=== PATIENT | female | born 1975 | race Caucasian/White ===

== ENCOUNTER 2018-04-20 18:51 | Emergency (ER) | payer OTHER ==
[2018-04-20 19:05] VITALS: BMI 16.7
[2018-04-20] MEDS ORDERED: ASPIRIN 81 MG CHEWABLE TABLETS PO ONE (20:17)
--- NOTE | 2018-04-20 20:17 | PDOC ---
History of Present Illness - General Chief Complaint: Chest Pain Stated Complaint: CHEST PALPITATIONS Time Seen by Provider: 04/20/18 19:34 History Source: Patient Exam Limitations: Language Barrier - History of Present Illness Initial Comments: 04/20/18 20:14 Pt is a 42yo f with no significant PMH presenting to ED with chest pain that started this morning around 9am. Pt said she was walking when she felt the pain and it has been constant since. Pain is stabbing in the left chest, does not radiate, associated with palpitations and lightheadedness. She tried herbal remedies but it did not help. She denies shortness of breath, cough, abdominal pain, n/v/d, fevers, headache, neck pain, urinary symptoms. LMP 3 weeks ago. Denies history of MO in the family. She smokes 10 cigarettes/day. PMD: none PMH: none PSH: appendectomy Meds: none Social: smokes 10 cigarettes/day Allergies: denies Past History - Past Medical History Allergies/Adverse Reactions: Allergies Allergy/AdvReac Type Severity Reaction Status Date / Time No Known Allergies Allergy Verified 04/20/18 21:11 Home Medications: Ambulatory Orders NK [No Known Home Medication] 04/20/18 - Immunization History Immunization Up to Date: Yes - Suicide/Smoking/Psychosocial Hx Smoking History: Current every day smoker Have you smoked in the past 12 months: Yes Number of Cigarettes Smoked Daily: 10 Information on smoking cessation initiated: No 'Breaking Loose' booklet given: 01/04/15 Hx Alcohol Use: No Drug/Substance Use Hx: No Substance Use Type: None *Physical Exam - Vital Signs Last Vital Signs Temp Pulse Resp BP Pulse Ox 98.1 F 61 20 114/72 99 04/20/18 19:15 04/20/18 19:15 04/20/18 19:15 04/20/18 19:15 04/20/18 19:15 ED Treatment Course - LABORATORY CBC & Chemistry Diagram: 04/20/18 21:50 04/20/18 21:50 Medical Decision Making - Medical Decision Making 04/20/18 21:08 Pt is a 42yo f with no significant PMH presenting to ED with chest pain that started this morning around 9am. PERC negative 04/20/18 21:16 labs wnl. waiting for ekg and cxr still has cp. ibuprofen and Tylenol given. EKG: sinus keya. T inversion in lead 3, aVF, V1, V3. T wave flattening in Lead 2 and V2. Similar to prior. D-dimer negative. Pt can be dc home. Given appointment with primary care. *DC/Admit/Observation/Transfer Diagnosis at time of Disposition: Chest pain Qualifiers: Chest pain type: unspecified Qualified Code(s): R07.9 - Chest pain, unspecified - Discharge Dispostion Disposition: HOME Condition at time of disposition: Good Decision to Admit order: No - Referrals - Patient Instructions Printed Discharge Instructions: DI for Chest Pain, Smoking Cessation Additional Instructions: You were seen here today for chest pain. All of your tests were normal. I highly recommend you see a doctor in the next week or so. You have an appointment scheduled. Please go to the appointment. I also recommend you stop smoking! It is hard, but it is important for your health. You can take over the counter medicines for your pain, like Tylenol and ibuprofen as directed. Come back to the emergency room if: pain gets worse, you have shortness of breath, you develop fevers, or if any new concerning symptom develops. Thank you - Post Discharge Activity
[2018-04-20] MEDS ORDERED: ASPIRIN 325 MG TABLET ONE (20:31)
[2018-04-20 20:38] LABS: BASO % 0.6 % (0-2.0); EOS % 1.6 % (0-4.5); HEMATOCRIT 28.8 % (32.4-45.2); LYMPH % 27.5 % (8-40); MCH 20.1 pg (25.7-33.7); MCHC 31.1 g/dl (32.0-36.0); MEAN CELL VOLUME 64.8 fl (80-96); MEAN PLT VOLUME 7.7 fl (7.5-11.1); MONO % 8.5 % (3.8-10.2); NEUT % 61.8 % (42.8-82.8); PLATELET COUNT 348 K/MM3 (134-434); RBC 4.44 M/mm3 (3.60-5.2); RDW 18.8 % (11.6-15.6); WHITE BLOOD COUNT 7.2 K/mm3 (4.0-10.0)
[2018-04-20 21:00] LABS: ALBUMIN 3.7 g/dl (3.4-5.0); ALK PHOS 43 U/L (45-117); ANION GAP 6 MMOL/L (8-16); BILIRUBIN,TOTAL 0.2 mg/dL (0.2-1); BLOOD UREA NITROGEN 10 mg/dL (7-18); CALCIUM 8.1 mg/dL (8.5-10.1); CHLORIDE 109 mmol/L (98-107); CO2 26 mmol/L (21-32); CREATININE 0.6 mg/dL (0.55-1.3); GLUCOSE,RANDOM 86 mg/dL (74-106); SGOT/AST 14 U/L (15-37); SGPT/ALT 15 U/L (13-61); SODIUM 141 mmol/L (136-145)
--- NOTE | 2018-04-20 21:04 | PDOC ---
Attending Attestation - HPI HPI: 04/20/18 23:40 The patient is a 42 year old female with no significant past medical history who presents to the ED with complaints of left sided, non-radiating chest pain with associated palpitations and lightheadedness while walking down the street today. Patient also admits to having some right calf pain that travels up her leg as well. Denies any lower extremity swelling. She denies any associated shortness of breath, cough, diaphoresis or syncope. Denies any cardiac history but reports smoking 10 cigarettes/day. - Physicial Exam PE: 04/20/18 23:40 NAD, well appearing, MMM, nl conjunctiva, anicteric; neck supple. lungs clear, RRR, abdomen soft nontender. KIRK x4, no focal neuro deficits. No peripheral edema. normal color for ethnicity, WWP. No calf tenderness bilaterally. - Medical Decision Making 04/20/18 23:40 Documentation prepared by Anna Marie Santos, acting as medical records analyst for Helene Amezquita MD. <Anna Marie Santos - Last Filed: 04/20/18 23:40> - Resident Resident Name: Lakeisha Martinez - ED Attending Attestation I have performed the following: I have examined & evaluated the patient, The case was reviewed & discussed with the resident, I agree w/resident's findings & plan - Medical Decision Making 04/20/18 21:02 I, Helene Amezquita MD, attest that this document has been prepared under my direction and personally reviewed by me in its entirety. I further attest, that it accurately reflects all work, treatment, procedures and medical decision -making performed by me. 42 year old female with no significant past medical history who presents to the ED with complaints of left sided, non-radiating chest pain with associated palpitations and lightheadedness, since resolving. took herbal remedy earlier today. EKG sinus bradycardia, no interval abnormalities, narrow QRS, ST and T wave segments and morphology normal. Nonspecific T wave abnormalities, unchanged from prior HEART score 1 which denotes Low risk and probability for ACS, less than 1% risk for MACE at 30 days. minimal risk factors. Low suspicion for ACS. Perc neg, low suspicion for PE with wells score zero and no risk factors, with <1.3%. Also low suspicion for dissection. DDx includes ACS, angina, chest pain NOS, costochondritis, GERD, pleurisy, anxiety, esophageal spasm, medication side effect.. Considered, but Low suspicion for pulmonary embolism or dissection. Results within normal limits, troponin is negative, baseline anemia without acute changes. D dimer negative, even less likely PE or DVT, more likely muscle cramps and not suspecting DVT as minimal risk factors, no ocp use. Dispo: Pt to be discharged in stable condition. Patient and family made aware of impression and plan, return precautions discussed (including but not limited to worsening pain or symptoms), fevers, or signs of infection, chest pain, respiratory distress, inability to tolerate oral intake, dehydration, syncope, or neurologic changes). Follow up with PMD (REFERRALS PROVIDED) as recommended, follow up information provided, take medications as instructed for duration of time. continue with supportive care, avoid triggers and precipitants. All questions answered to patient's satisfaction and expressed understanding and comfort with this. 04/21/18 00:29 <Helene Amezquita - Last Filed: 04/21/18 00:33> Heart Score/ECG Review - History History: Slightly suspicious - Electrocardiogram EKG: Non specific repolarization disturbance - Age Age: </= 45 - Risk Factors Based on the list above the patient has:: No risk factors known - Troponin Troponin: </= normal limit - Score Heart Score - Total: 1 - ECG Impressions Comment:: 04/20/18 21:02 EKG sinus bradycardia, no interval abnormalities, narrow QRS, ST and T wave segments and morphology normal. Nonspecific T wave abnormalities, unchanged from prior <Helene Amezquita - Last Filed: 04/21/18 00:33>
[2018-04-20 21:49] LABS: ANISOCYTOSIS 2+; OVALOCYTE 1+
[2018-04-20 22:23] LABS: BASO % 0.8 % (0-2.0); EOS % 1.7 % (0-4.5); HEMATOCRIT 28.7 % (32.4-45.2); LYMPH % 29.3 % (8-40); MCH 20.2 pg (25.7-33.7); MCHC 31.3 g/dl (32.0-36.0); MEAN CELL VOLUME 64.5 fl (80-96); MEAN PLT VOLUME 8.2 fl (7.5-11.1); MONO % 8.3 % (3.8-10.2); NEUT % 59.9 % (42.8-82.8); PLATELET COUNT 341 K/MM3 (134-434); RBC 4.44 M/mm3 (3.60-5.2); RDW 18.5 % (11.6-15.6)
[2018-04-20] MEDS ORDERED: ACETAMINOPHEN 500 MG TABLET (FP) PO ONE (22:33)
[2018-04-20 22:52] LABS: ALBUMIN 3.7 g/dl (3.4-5.0); ALK PHOS 41 U/L (45-117); ANION GAP 10 MMOL/L (8-16); BILIRUBIN,TOTAL 0.4 mg/dL (0.2-1); BLOOD UREA NITROGEN 9 mg/dL (7-18); CHLORIDE 109 mmol/L (98-107); CO2 23 mmol/L (21-32); CREATININE 0.6 mg/dL (0.55-1.3); GLUCOSE,RANDOM 81 mg/dL (74-106); POTASSIUM 3.9 mmol/L (3.5-5.1); SGOT/AST 14 U/L (15-37); SGPT/ALT 17 U/L (13-61); SODIUM 141 mmol/L (136-145)
[2018-04-20] MEDS ORDERED: IBUPROFEN 600 MG TABLET (FP) PO ONE (22:53)
[2018-04-20] MEDS ORDERED: ACETAMINOPHEN 325 MG TABLET (FP) ONE (23:29)
[2018-04-20] MEDS ORDERED: IBUPROFEN 400 MG TABLET (FP) PO ONE (23:30)
[2018-04-21 00:52] VITALS: BP 116/72; PULSE 76; TEMP 97.9
--- NOTE | 2018-04-21 16:15 | EKG ---
Test Reason : Blood Pressure : / mmHG Vent. Rate : 057 BPM Atrial Rate : 057 BPM P-R Int : 180 ms QRS Dur : 094 ms QT Int : 446 ms P-R-T Axes : -24 066 026 degrees QTc Int : 434 ms SINUS BRADYCARDIA NONSPECIFIC T WAVE ABNORMALITY ABNORMAL ECG WHEN COMPARED WITH ECG OF 04-JAN-2015 10:19, QT HAS SHORTENED Confirmed by MD TESSY, SARAH ([id number]) on 04/21/2018 4:15:38 PM Referred By: Confirmed By:SARAH STILL MD
--- NOTE | 2018-04-21 16:15 | EKG ---
Test Reason : Blood Pressure : / mmHG Vent. Rate : 054 BPM Atrial Rate : 054 BPM P-R Int : 190 ms QRS Dur : 098 ms QT Int : 468 ms P-R-T Axes : -20 042 -03 degrees QTc Int : 443 ms SINUS BRADYCARDIA NONSPECIFIC T WAVE ABNORMALITY ABNORMAL ECG WHEN COMPARED WITH ECG OF 04-JAN-2015 10:19, NO SIGNIFICANT CHANGE WAS FOUND Confirmed by MD TESSY, SARAH ([id number]) on 04/21/2018 4:14:55 PM Referred By: Confirmed By:SARAH STILL MD
== END 2018-04-21 00:52 | disposition home or self-care (01) ==
LOC: JER 18:51
DX: R07.9 Chest pain, unspecified (principal)
CPT/HCPCS: 36415; 71046-TC-FY; 80053; 84484; 84703; 85025; 85379; 93005; 93010; 99282-25

== ENCOUNTER 2018-05-27 08:40 | Day surgery (SDC) | payer OTHER ==
[2018-05-19 14:57] VITALS: BMI 20.4
[2018-05-27] MEDS ORDERED: PROPOFOL 20 ML ONE ×2 (09:09)
[2018-05-27 10:46] VITALS: BP 128/73; PULSE 78; TEMP 98
--- NOTE | 2018-06-01 11:25 | PATH ---
Surgical Pathology Report Patient Name: PA TINEO [facility]. Rec. #: [id number] /Age/Gender: 1975 (Age: 43) / F Account: [id number] Location: [facility] Taken: 05/27/2018 Received: 05/27/2018 Reported: 06/01/2018 Physicians: Kayla Catalan M.D. Specimen(s) Received A: 2ND PORTION DUODENUM B: BX ANTRUM C: BX GE JUNCTION Clinical History Anemia Postoperative diagnosis: Gastritis Final Diagnosis A. SECOND PORTION OF DUODENUM, BIOPSY: DUODENAL MUCOSA WITH NO PATHOLOGIC FINDINGS. B. ANTRUM, BIOPSY: MODERATE CHRONIC GASTRITIS, MILDLY ACTIVE. IMMUNOSTAIN SHOWS A FEW H.PYLORI ORGANISMS. C. GE JUNCTION, BIOPSY: COLUMNAR (GASTRIC CARDIA-TYPE) MUCOSA SHOWING MILD CHRONIC INFLAMMATION. NEGATIVE FOR INTESTINAL METAPLASIA. NO ESOPHAGEAL (SQUAMOUS) MUCOSA IS IDENTIFIED. Electronically Signed Lois Rodriguez M.D. Gross Description A. Received in formalin, labeled "biopsy duodenum second portion" are 2 cervantes, irregular portions of soft tissue measuring 0.2 and 0.4 cm. in greatest dimension. The specimens are submitted in toto in one cassette. B. Received in formalin, labeled "biopsy antrum" is a cervantes, irregular portion of soft tissue measuring 0.3 cm. in greatest dimension. The specimen is submitted in toto in one cassette. C. Received in formalin, labeled "biopsy GE junction" is a cervantes, irregular portion of soft tissue measuring 0.2 cm. in greatest dimension. The specimen is submitted in toto in one cassette. 05/27/201805/27/2018
== END 2018-05-27 10:46 | disposition home or self-care (01) ==
LOC: FASU-ENDO 08:40
PROVIDERS: ATTEND Internal Medicine Gastroenterology
PROC: 0DB68ZX Excision of Stomach, Via Natural or Artificial Opening Endoscopic, Diagnostic (ICD-10-PCS; 2018-05-27)
PROC: 0DB48ZX Excision of Esophagogastric Junction, Via Natural or Artificial Opening Endoscopic, Diagnostic (ICD-10-PCS; 2018-05-27)
PROC: 0DB98ZX Excision of Duodenum, Via Natural or Artificial Opening Endoscopic, Diagnostic (ICD-10-PCS; principal; 2018-05-27 09:00)
DX: K29.50 Unspecified chronic gastritis without bleeding (principal); B96.81 Helicobacter pylori [H. pylori] as the cause of diseases classified elsewhere
CPT/HCPCS: 84703; 88305-TC; 88342-TC